=== PATIENT | male | born 1965 | race Caucasian/White ===

== ENCOUNTER 2024-01-20 15:14 | Observation (INO) | payer OTHER ==
[2024-01-20 15:34] LABS: Absolute Eosinophils 0.6 K/uL (0-0.5); Absolute Lymphocytes (CBC) 2.3 K/uL (0.7-4.9); Absolute Monocytes 0.9 K/uL (0.1-1.3); Absolute Neutrophil 6.1 K/uL (1.8-8.0); Basophils % 0.2 % (0-1.3); Eosinophils % 5.8 % (0-4.4); Hematocrit 38.5 % (39.6-49.0); Hemoglobin 12.7 g/dL (13.6-17.9); Lymphocytes % 23.1 % (15.3-44.8); MCH 29.6 pg (27.0-35.0); MCV 89.5 fL (80-100); MPV 9.9 fL (7.6-11.3); Monocytes % 9.1 % (3.3-12.3); Neutrophils % 61.8 % (41.7-73.7); Platelets 246 thou/uL (152-406); Red Cell Distribution Width 13.4 % (12.1-15.2)
[2024-01-20 15:39] LABS: PT Prothrombin Time 12.3 SECONDS (9.5-12.5); Protime INR 1.12
--- NOTE | 2024-01-20 16:10 | RAD REPORT ---
EXAM DESCRIPTION: Evelin Single View01/20/2024 3:35 pm CLINICAL HISTORY: Chest pain COMPARISON: none FINDINGS: Heart is mildly enlarged The lungs appear clear of acute infiltrate Mild prominence of superior mediastinum IMPRESSION: Mild prominence of the superior mediastinum probably confluence of mediastinal fat and v essels. Lymphadenopathy and substernal thyroid could also result in this appearance. PA and lateral c hest series may be helpful for further evaluation
[2024-01-20 16:21] LABS: Albumin 3.1 g/dL (3.4-5.0); Albumin/Globulin Ratio 0.9 (1.1-1.8); Anion Gap 6.8 mEq/L (5.0-15.0); Bilirubin Direct 0.1 mg/dL (0-0.2); Bilirubin Indirect, Calculated 0.5 mg/dL (0.2-0.8); Bilirubin Total 0.6 mg/dL (0.2-1.0); Globulin 3.4 g/dL (2.3-3.5); Magnesium 1.9 mg/dL (1.6-2.4); Potassium 3.8 mEq/L (3.5-5.1); Protein, Total 6.5 g/dL (6.4-8.2); Troponin High Sensitivity 8.8 pg/mL (<58.9)
--- NOTE | 2024-01-20 16:56 | ER ---
Nurse's Notes [facility] Name: Juan Jose Kennedy Age: 58 yrs Sex: Male : 1965 Arrival Date: 01/20/2024 Time: 15:14 Bed 3 Private MD: Diagnosis: Chest pain, unspecified Presentation: 01/19 15:19 Chief complaint: Patient states: he started having chest pain approx 1 hour [employer] SET[employer] while ap3 at work. EMS states they administered NITRO sublingual X's 2, and 324 ASA. 18g IV is established to the left AC. patient reports current pain level to be a 2/10. Coronavirus screen: At this time, the client does not indicate any symptoms associated with coronavirus-19. Ebola Screen: No symptoms or risks identified at this time. Initial Sepsis Screen: Does the patient meet any 2 criteria? No. Patient's initial sepsis screen is negative. Does the patient have a suspected source of infection? No. Patient's initial sepsis screen is negative. Risk Assessment: Do you want to hurt yourself or someone else? Patient reports no desire to harm self or others. Onset of symptoms was January 20, 2024. 15:19 Method Of Arrival: EMS: [facility] ap3 15:19 Acuity: TJ 2 ap3 15:22 Care prior to arrival: Medication(s) given: ASA, 81 mg, x 4, Nitroglycerin, 0.4 mg SL x ap3 2, IV initiated. 18 GA, in the left antecubital area. Triage Assessment: 15:23 General: Appears in no apparent distress. Behavior is calm, cooperative. Pain: ap3 Complains of pain in chest and left arm Pain currently is 2 out of 10 on a pain scale. Neuro: Level of Consciousness is awake, alert, obeys commands, Oriented to person, place, time, situation. Cardiovascular: Reports chest pain. Respiratory: Airway is patent Respiratory effort is even, unlabored, Respiratory pattern is regular, symmetrical. Historical: - Allergies: 15:22 No Known Allergies; ap3 - PMHx: 15:22 None; ap3 - Immunization history:: Client reports receiving the 2nd dose of the Covid vaccine, Flu vaccine is up to date. - Infectious Disease History:: Denies. - Social history:: Smoking status: Patient reports use of chewing tobacco. Screenin:23 Abuse screen: Denies threats or abuse. Nutritional screening: No deficits noted. ap3 Tuberculosis screening: No symptoms or risk factors identified. 15:25 [facility] ED Fall Risk Assessment (Adult) History of falling in the last 3 months, rs5 including since admission No falls in past 3 months (0 pts) Confusion or Disorientation No (0 pts) Intoxicated or Sedated No (0 pts) Impaired Gait No (0 pts) Mobility Assist Device Used No (0 pt) Altered Elimination No (0 pt) Score/Fall Risk Level 0 - 2 = Low Risk Oriented to surroundings, Maintained a safe environment. Abuse screen:. Assessment: 15:20 General: Appears in no apparent distress. uncomfortable, Behavior is calm, cooperative. rs5 Pain: Complains of pain in chest Pain currently is 3 out of 10 on a pain scale. Quality of pain is described as aching, Pain began 1 hour ago. Is continuous. Pain: Neuro: Level of Consciousness is awake, alert, obeys commands, Oriented to person, place, time, situation. Cardiovascular: Patient's skin is warm and dry. Rhythm is regular. Respiratory: Airway is patent Respiratory effort is even, unlabored, Respiratory pattern is regular, symmetrical. GI: Abdomen is round non-distended, Abd is soft and non tender X 4 quads. : No signs and/or symptoms were reported regarding the genitourinary system. EENT: No signs and/or symptoms were reported regarding the EENT system. Derm: Skin is intact, Skin is pink, warm \T\ dry. Musculoskeletal: Range of motion: intact in all extremities. 16:25 Reassessment: Patient and/or family updated on plan of care and expected duration. Pain rs5 level reassessed. Patient is alert, oriented x 3, equal unlabored respirations, skin warm/dry/pink. Patient denies pain at this time. Patient states feeling better. Patient states symptoms have improved. 17:15 Pain: Denies pain. Cardiovascular: Rhythm is regular. Respiratory: Respiratory effort rs5 is even, unlabored, Respiratory pattern is regular, symmetrical. 18:00 Reassessment: No changes from previously documented assessment. rs5 Vital Signs: 15:19 BP 150 / 86; Pulse 70; Resp 19; Temp 98; Pulse Ox 99% ; Weight 123.83 kg; Height 5 ft. ap3 11 in. ; Pain 2/10; 17:16 BP 128 / 78; Pulse 75; Resp 18; Pulse Ox 99% ; rs5 18:22 BP 130 / 81; Pulse 73; Resp 18; Pulse Ox 99% on R/A; rs5 15:19 Body Mass Index 38.08 (123.83 kg, 180.34 cm) ap3 15:19 Pain Scale: Adult ap3 ED Course: 15:19 Patient arrived in ED. ap3 15:21 Fortunato Chamberlain MD is Attending Physician. sp3 15:22 Triage completed. ap3 15:23 O2 via room air. ap3 15:24 Arm band placed on right wrist. ap3 15:24 ekg monitor on. Pulse ox on. NIBP on. ap3 15:25 Inserted saline lock: 20 gauge in left antecubital area, using aseptic technique. rs5 15:25 Patient has correct armband on for positive identification. Placed in gown. Bed in low rs5 position. Call light in reach. Side rails up X2. 15:32 Carlos A Romeo, RN is Primary Nurse. rs5 15:36 XRAY Chest (1 view) In Process Unspecified. EDMS 16:55 Chris Edwards is Hospitalizing Provider. sp3 17:15 No provider procedures requiring assistance completed. rs5 18:25 Patient admitted, IV remains in place. rs5 Administered Medications: No medications were administered Medication: 15:25 VIS not applicable for this client. rs5 Outcome: 16:55 Decision to Hospitalize by Provider. sp3 18:25 Admitted to Med/surg accompanied by tech, with chart, rs5 18:25 Condition: stable 18:25 Discharge instructions given to patient, family, Instructed on the need for admit, Demonstrated understanding of instructions, 18:26 Patient left the ED. rs5 Signatures: Dispatcher [employer] EDSD Alisia Galaviz RN RN ap3 Fortunato Chamberlain MD MD sp3 Carlos A Romeo, MICHEL RN rs5 Corrections: (The following items were deleted from the chart) 17:14 15:24 Pain: Pain radiates to left arm ap3 rs5
--- NOTE | 2024-01-20 16:56 | EDPHYS ---
Physician Documentation [facility] Name: Juan Jose Kennedy Age: 58 yrs Sex: Male : 1965 Arrival Date: 01/20/2024 Time: 15:14 Bed 3 Private MD: ED Physician Fortunato Chamberlain HPI: 01/19 15:26 This 58 yrs old Male presents to ER via EMS with complaints of Chest Pain. sp3 15:26 58-year-old male with no significant past medical history except for some seasonal sp3 allergies now presents to the ED via EMS from [facility] for chest pain that started while he was at work. Patient works outside but states he has been adequately hydrating. Pain came on sudden onset substernal with diaphoresis and mild shortness of breath. Symptoms have somewhat resolved since being transported and arriving here. He denies headache, neck pain, ongoing chest pain or shortness of breath, back pain, abdominal pain, vomiting, diarrhea, syncope, near syncope, rash, significant travel history, known sick contacts, prolonged immobilization, or any other signs or symptoms on ROS at this time.. Historical: - Allergies: 15:22 No Known Allergies; ap3 - PMHx: 15:22 None; ap3 - Immunization history:: Client reports receiving the 2nd dose of the Covid vaccine, Flu vaccine is up to date. - Infectious Disease History:: Denies. - Social history:: Smoking status: Patient reports use of chewing tobacco. ROS: 15:27 Constitutional: Negative for fever, chills, and weight loss, Eyes: Negative for injury, sp3 pain, redness, and discharge, ENT: Negative for injury, pain, and discharge, Neck: Negative for injury, pain, and swelling, Abdomen/GI: Negative for abdominal pain, nausea, vomiting, diarrhea, and constipation, Back: Negative for injury and pain, MS/Extremity: Negative for injury and deformity, Skin: Negative for injury, rash, and discoloration, Neuro: Negative for headache, weakness, numbness, tingling, and seizure, Psych: Negative for depression, anxiety, suicide ideation, homicidal ideation, and hallucinations, Allergy/Immunology: Negative for hives, rash, and allergies, Endocrine: Negative for neck swelling, polydipsia, polyuria, polyphagia, and marked weight changes, 15:27 All other systems are negative, Exam: 15:27 Constitutional: This is a well developed, well nourished patient who is awake, alert, sp3 and in no acute distress. Head/Face: Normocephalic, atraumatic. Eyes: Pupils equal round and reactive to light, extra-ocular motions intact. Lids and lashes normal. Conjunctiva and sclera are non-icteric and not injected. Cornea within normal limits. Periorbital areas with no swelling, redness, or edema. Neck: Trachea midline, no thyromegaly or masses palpated, and no cervical lymphadenopathy. Supple, full range of motion without nuchal rigidity, or vertebral point tenderness. No Meningismus. Chest/axilla: Normal chest wall appearance and motion. Nontender with no deformity. No lesions are appreciated. Cardiovascular: Regular rate and rhythm with a normal S1 and S2. No gallops, murmurs, or rubs. Normal PMI, no JVD. No pulse deficits. Respiratory: Lungs have equal breath sounds bilaterally, clear to auscultation and percussion. No rales, rhonchi or wheezes noted. No increased work of breathing, no retractions or nasal flaring. Abdomen/GI: Soft, non-tender, with normal bowel sounds. No distension or tympany. No guarding or rebound. No evidence of tenderness throughout. Back: No spinal tenderness. No costovertebral tenderness. Full range of motion. Skin: Warm, dry with normal turgor. Normal color with no rashes, no lesions, and no evidence of cellulitis. MS/ Extremity: Pulses equal, no cyanosis. Neurovascular intact. Full, normal range of motion. Neuro: Awake and alert, GCS 15, oriented to person, place, time, and situation. Cranial nerves II-XII grossly intact. Motor strength 5/5 in all extremities. Sensory grossly intact. Cerebellar exam normal. Normal gait. Psych: Awake, alert, with orientation to person, place and time. Behavior, mood, and affect are within normal limits. Vital Signs: 15:19 BP 150 / 86; Pulse 70; Resp 19; Temp 98; Pulse Ox 99% ; Weight 123.83 kg; Height 5 ft. ap3 11 in. ; Pain 2/10; 17:16 BP 128 / 78; Pulse 75; Resp 18; Pulse Ox 99% ; rs5 18:22 BP 130 / 81; Pulse 73; Resp 18; Pulse Ox 99% on R/A; rs5 15:19 Body Mass Index 38.08 (123.83 kg, 180.34 cm) ap3 15:19 Pain Scale: Adult ap3 MDM: 15:22 Patient medically screened. sp3 15:28 Data reviewed: vital signs, nurses notes, lab test result(s), EKG, radiologic studies. sp3 ED course: 58-year-old male with chest pain and related ACS symptoms by EMS. Differential diagnosis includes acute coronary syndrome spectrum, electrolyte abnormality, vasovagal syncope, among others. Clinically I have ruled out pulmonary embolism and TAD. Will likely place this patient in 23-hour observation given midrange heart score and symptom history.. 16:26 ED course: Workup negative with BNP in 223 very mildly elevated. No ongoing chest pain sp3 currently. Troponin is also negative. Will place in 23-hour observation for serial cardiac markers and cardiology consultation with probable discharge tomorrow.. 01/19 15:21 Order name: Basic Metabolic Panel; Complete Time: 16:25 sp3 01/19 15:21 Order name: CBC with Diff; Complete Time: 16:10 sp3 01/19 15:21 Order name: LFT's; Complete Time: 16:25 sp3 01/19 15:21 Order name: Magnesium; Complete Time: 16:25 sp3 01/19 15:21 Order name: NT PRO-BNP; Complete Time: 16:25 sp3 01/19 15:21 Order name: PT-INR; Complete Time: 16:10 sp3 01/19 15:21 Order name: Troponin HS; Complete Time: 16:25 sp3 01/19 17:24 Order name: T4 Free EDMS 01/19 17:24 Order name: Thyroid Stimulating Hormone EDMS 01/19 17:24 Order name: Basic Metabolic Panel EDMS 01/19 17:24 Order name: Basic Metabolic Panel EDMS 01/19 17:24 Order name: CBC with Automated Diff EDMS 01/19 17:25 Order name: CBC with Automated Diff EDMS 01/19 17:25 Order name: Lipid Profile EDMS 01/19 17:25 Order name: Lipid Profile EDMS 01/19 17:25 Order name: Magnesium EDMS 01/19 17:25 Order name: Magnesium EDMS 01/19 17:25 Order name: Phosphorus EDMS 01/19 17:25 Order name: Phosphorus EDMS 01/19 17:25 Order name: Troponin High Sensitivity EDMS 01/19 17:25 Order name: Troponin High Sensitivity EDMS 01/19 17:25 Order name: Troponin High Sensitivity EDMS 01/19 15:21 Order name: XRAY Chest (1 view); Complete Time: 16:18 sp3 01/19 15:21 Order name: Cardiac monitoring; Complete Time: 15:38 sp3 01/19 15:21 Order name: EKG - Nurse/Tech; Complete Time: 15:41 sp3 01/19 15:21 Order name: IV Saline Lock; Complete Time: 15:41 sp3 01/19 15:21 Order name: Labs collected and sent; Complete Time: 15:41 sp3 01/19 15:21 Order name: O2 Per Protocol; Complete Time: 15:41 sp3 01/19 15:21 Order name: O2 Sat Monitoring; Complete Time: 15:41 sp3 Administered Medications: No medications were administered Disposition Summary: 01/20/24 16:55 Hospitalization Ordered Notes: Hospitalization Status: Observation sp3 Provider: Chris Edwards sp3 Location: Telemetry/MedSurg (observation) sp3 Condition: Stable sp3 Problem: new sp3 Symptoms: have worsened sp3 Bed/Room Type: Standard 3 Room Assignment: 405(01/20/24 17:37) eb Diagnosis - Chest pain, unspecified sp3 Forms: - Medication Reconciliation Form sp3 - SBAR form sp3 - Leadership Thank You Letter sp3 Signatures: Dispatcher [employer] Alisia Reyna RN RN ap3 Loraine Leong Setul, MD MD sp3 Carlos A Romeo RN RN rs5 Corrections: (The following items were deleted from the chart) 15:22 15:22 BASIC METABOLIC PANEL+C.LAB.BRZ ordered. EDMS EDMS 15:22 15:22 CBC+H.LAB.BRZ ordered. EDMS EDMS 15:22 15:22 HEPATIC FUNCTION+C.LAB.BRZ ordered. EDMS EDMS 15:22 15:22 MAGNESIUM+C.LAB.BRZ ordered. EDMS EDMS 15:22 15:22 PROBNP+C.LAB.BRZ ordered. EDMS EDMS 15:22 15:22 PROTIME (+INR)+COAG.LAB.BRZ ordered. EDMS EDMS 15:22 Troponin High Sensitivity+C.LAB.BRZ ordered. EDMS EDMS 15:22 Chest Single View+RAD.RAD.BRZ ordered. EDMS EDMS 17:37 16:55 sp3 eb
--- NOTE | 2024-01-20 17:02 | P.HP ---
Certification for Inpatient Patient admitted to: Observation With expected LOS: <2 Midnights Patient will require the following post-hospital care: None Practitioner: I am a practitioner with admitting privileges, knowledge of patient current condition, hospital course, and medical plan of care. Services: Services provided to patient in accordance with Admission requirements found in Title 42 Section 412.3 of the Code of Federal Regulations Patient History Date of Service: 01/20/24 Reason for admission: Chest Pain r/o History of Present Illness: Juan Jose Kennedy is a 58 year old male with Pmhx CVA x3 (not taking medication) who presents to the ED with chief complaint of sharp stabbing left chest pain that radiates to his left arm and neck that started at 1430 at work today. He reports that he sweats everyday at work and cannot identify if he was sweating d/t this new onset chest pain. On examination, the left chest pain is reproducible stating it feeling like a bruise. Lung sounds clear on RA, alert and oriented, BP mildly elevated. Initial vitals:BP 150 / 86; Pulse 70; Resp 19; Temp 98; Pulse Ox 99% Laboratory evaluation H&H 12.7/38.5, GFR 51, BNP 273, Troponin 8.8. Chest xray reports "Heart is mildly enlarged. The lungs appear clear of acute infiltrate. Mild prominence of superior mediastinum. IMPRESSION: Mild prominence of the superior mediastinum probably confluence of mediastinal fat and vessels. Lymphadenopathy and substernal thyroid could also result in this appearance. PA and lateral chest series may be helpful for further evaluation." Juan oJse will be admitted to hospital service for further evaluation and treatment of chest pain rule out ACS. Dr. Corral consulted. - Past Medical/Surgical History -: CVA x3 -: seasonal allergies Past Surgical History: Reviewed- Non-Contributory - Family History Family History: Reviewed- Non-Contributory - Social History Smoking Status: Never smoker Alcohol use: No CD- Drugs: No Review of Systems Cardiovascular: Chest Pain, Other (left sided, radiates to left arm and neck) Physical Examination - Physical Exam General: Alert, In no apparent distress, Oriented x3 HEENT: Atraumatic, Normocephalic, PERRLA Neck: Supple, 2+ carotid pulse no bruit Respiratory: Clear to auscultation bilaterally, Normal air movement Cardiovascular: No edema, Normal pulses, Regular rate/rhythm, Normal S1 S2 Capillary refill: <2 Seconds Gastrointestinal: Normal bowel sounds, Distended (obese) - Studies Laboratory Data (last 24 hrs) 01/20/24 01/20/24 01/20/24 15:23 15:22 15:22 WBC 9.80 Hgb 12.7 L Hct 38.5 L Plt Count 246 PT 12.3 INR 1.12 Sodium 140 Potassium 3.8 BUN 16 Creatinine 1.55 H Glucose 97 Magnesium 1.9 Total Bilirubin 0.6 AST 15 ALT 25 Alkaline Phosphatase 72 Assessment and Plan - Plan Assessment and plan Chest pain rule out ACS -Troponin 8.8, serial pending -BNP 273 -Chest x-ray reports "Heart is mildly enlarged. The lungs appear clear of acute infiltrate. Mild prominence of superior mediastinum. IMPRESSION: Mild prominence of the superior mediastinum probably confluence of mediastinal fat and vessels. Lymphadenopathy and substernal thyroid could also result in this appearance. PA and lateral chest series may be helpful for further evaluation." -EKG reports sinus rhythm with occasional PVCs. HR 88. -Continuous telemetry -Cardiology consulted- recommendations appreciated -Echo ordered -Aspirin and statin daily -Nitroglycerin and morphine as needed History of CVA -No home medication regimen at this time DVT PPx Lovenox Full code LOS 23 hours Discharge Plan: Home Plan to discharge in: 24 Hours - Advance Directives Does patient have a Living Will: No Does patient have a Durable POA for Healthcare: No
[2024-01-20] MEDS ORDERED: ACETAMINOPHEN 500 MG TAB PO PRN (17:17)
[2024-01-20] MEDS ORDERED: MORPHINE 2 MG/ML SYR IV PRN (17:17)
[2024-01-20] MEDS ORDERED: NITROGLYCERIN 0.4 MG/TAB SL PRN (17:17)
[2024-01-20 18:44] LABS: Thyroid Stimulating Hormone 2.03 uIU/mL (0.358-3.740)
[2024-01-20] MEDS: ATORVASTATIN 40 MG TAB PO SCH (22:05)
[2024-01-21 03:34] LABS: Absolute Eosinophils 0.8 K/uL (0-0.5); Absolute Lymphocytes (CBC) 2.2 K/uL (0.7-4.9); Absolute Monocytes 0.7 K/uL (0.1-1.3); Absolute Neutrophil 4.1 K/uL (1.8-8.0); Basophils % 0.4 % (0-1.3); Eosinophils % 10.1 % (0-4.4); Lymphocytes % 27.6 % (15.3-44.8); MCH 30.5 pg (27.0-35.0); MCHC 34.1 g/dL (32.0-36.0); MCV 89.5 fL (80-100); Monocytes % 9.4 % (3.3-12.3); Neutrophils % 52.5 % (41.7-73.7); Nucleated Red Blood Cells % 0.1 % (0-0); Platelets 236 thou/uL (152-406); RBC Red Blood Cell Count 4.25 M/uL (4.33-5.43); Red Cell Distribution Width 13.1 % (12.1-15.2)
[2024-01-21 03:49] LABS: Anion Gap 6.9 mEq/L (5.0-15.0); Magnesium 2.2 mg/dL (1.6-2.4); Phosphorus 3.7 mg/dL (2.5-4.9); Potassium 3.9 mEq/L (3.5-5.1)
[2024-01-21 04:18] VITALS: O2SAT 97; BMI 37.6
[2024-01-21] MEDS: POTASSIUM CL SA 10 MEQ TAB PO ONE (08:20)
--- NOTE | 2024-01-21 14:38 | P.PN ---
Date of Service: 01/21/24 Subjective Awake without chest pain this morning Ambulating independently, tolerating p.o. diet No new complaint ROS 10 point ROS as noted above, otherwise negative Physical Exam General: AAOx3, NAD HEENT: Atraumatic, Normocephalic, PERRLA Neck: Supple, 2+ carotid pulse no bruit Respiratory: Clear to auscultation bilaterally, symmetrical chest wall movement normal air movement Cardiovascular: Regular rate/rhythm, Normal S1 S2, no murmur noted Capillary refill: <2 Seconds Gastrointestinal: Normal bowel sounds, Distended (obese) Musculoskeletal: 2+ peripheral pulses Neurological: clear appropriate speech, normal tone Psych: normal mood and affect, Judgement appropriate Vitals Reviewed Problem list Chest pain rule out ACS History of CVA Assessment and Plan Chest pain rule out ACS -Troponin 8.8/10.7/8.6 -BNP 273 -Chest x-ray reports "Heart is mildly enlarged. The lungs appear clear of acute infiltrate. Mild prominence of superior mediastinum. IMPRESSION: Mild prominence of the superior mediastinum probably confluence of mediastinal fat and vessels. Lymphadenopathy and substernal thyroid could also result in this appearance. PA and lateral chest series may be helpful for further evaluation." -EKG reports sinus rhythm with occasional PVCs. HR 88. -Continuous telemetry -Cardiology consulted- recommendations appreciated -Echo ordered -Aspirin and statin daily -Nitroglycerin and morphine as needed -Lipid panel unremarkable, TSH/T4 unremarkable History of CVA -No home medication regimen at this time DVT PPx Lovenox Full code LOS 23 hours
--- NOTE | 2024-01-21 16:09 | P.DS ---
Admission Date: 01/20/24 Discharge Date: 01/21/24 Disposition: ROUTINE DISCHARGE Discharge Condition: GOOD Reason for Admission: Chest Pain r/o Brief History of Present Illness: Diagnosis Chest pain rule out ACS History of CVA HPI 01/20/24 Juan Jose Kennedy is a 58 year old male with Pmhx CVA x3 (not taking medication) who presents to the ED with chief complaint of sharp stabbing left chest pain that radiates to his left arm and neck that started at 1430 at work today. He reports that he sweats everyday at work and cannot identify if he was sweating d/t this new onset chest pain. On examination, the left chest pain is reproducible stating it feeling like a bruise. Lung sounds clear on RA, alert and oriented, BP mildly elevated. Initial vitals:BP 150 / 86; Pulse 70; Resp 19; Temp 98; Pulse Ox 99% Laboratory evaluation H&H 12.7/38.5, GFR 51, BNP 273, Troponin 8.8. Chest xray reports "Heart is mildly enlarged. The lungs appear clear of acute infiltrate. Mild prominence of superior mediastinum. IMPRESSION: Mild prominence of the superior mediastinum probably confluence of mediastinal fat and vessels. Lymphadenopathy and substernal thyroid could also result in this appearance. PA and lateral chest series may be helpful for further evaluation." Juan Jose will be admitted to hospital service for further evaluation and treatment of chest pain rule out ACS. Dr. Corral consulted. Hospital Course: Dieudonne Kennedy is a pleasant 58 year old male with a past medical history significant for CVA x3 who was admitted to the [facility] on 01/20/24 for Chest pain rule out. Juan Jose Kennedy presented to the ED with chief complaint of Chest pain radiating to the left arm and neck. Troponins trended flat and EKG was negative. Dr. Corral recommended further evaluation in his office next week (January 22-January 26). Please follow up with cardiology very soon for continued management. Please pick up attendant atorvastatin and aspirin at your pharmacy and continue to take these medications until further directed by cardiology. He is tolerating p.o. diet, ambulating independently, chest pain is relieved, and hemodynamically stable for discharge On 01/21/24, Juan Jose was seen on morning rounds and deemed medically stable for discharge. Juan Jose was discharged with instructions to schedule follow-up appointments with PCP and Dr. Corral. Juan Jose was provided prescriptions for atorvastatin and aspirin. The patient was given the opportunity to ask questions and reported no further questions. Furthermore, all questions were answered to the best of my ability. Physical Exam General: No acute distress, AAOx3 HEENT: Atraumatic, Normocephalic, PERRLA Neck: Supple, 2+ carotid pulse no bruit Respiratory: Clear to auscultation bilaterally, symmetrical chest wall movement normal air movement Cardiovascular: RRR, Normal S1 S2, no murmur noted Capillary refill: <2 Seconds Gastrointestinal: Normal bowel sounds, Distended (obese) Musculoskeletal: 2+ peripheral pulses Neurological: clear appropriate speech, normal tone Psych: normal mood and affect, Judgement appropriate Vital Signs/Physical Exam: Temp Pulse Resp BP Pulse Ox 97.7 F 69 16 137/83 97 01/21/24 12:00 01/21/24 12:00 01/21/24 12:00 01/21/24 12:00 01/21/24 12:00 Laboratory Data at Discharge: WBC 7.80 thou/uL (4.3-10.9) 01/21/24 02:57 Hgb 13.0 g/dL (13.6-17.9) L 01/21/24 02:57 Hct 38.0 % (39.6-49.0) L 01/21/24 02:57 Plt Count 236 thou/uL (152-406) 01/21/24 02:57 PT 12.3 SECONDS (9.5-12.5) 01/20/24 15:23 INR 1.12 01/20/24 15:23 Sodium 140 mEq/L (136-145) 01/21/24 02:57 Potassium 3.9 mEq/L (3.5-5.1) 01/21/24 02:57 BUN 16 mg/dL (7-18) 01/21/24 02:57 Creatinine 1.29 mg/dL (0.70-1.30) 01/21/24 02:57 Glucose 110 mg/dL (74-106) H 01/21/24 02:57 Phosphorus 3.7 mg/dL (2.5-4.9) 01/21/24 02:57 Magnesium 2.2 mg/dL (1.6-2.4) 01/21/24 02:57 Total Bilirubin 0.6 mg/dL (0.2-1.0) 01/20/24 15:22 AST 15 U/L (15-37) 01/20/24 15:22 ALT 25 U/L (16-61) 01/20/24 15:22 Alkaline Phosphatase 72 U/L (45-117) 01/20/24 15:22 Triglycerides 117 mg/dL (<150) 01/21/24 02:57 Cholesterol 172 mg/dL (<200) 01/21/24 02:57 HDL Cholesterol 36 mg/dL (40-60) L 01/21/24 02:57 Cholesterol/HDL Ratio 4.78 01/21/24 02:57 Home Medications: Aspirin [Adult Low Dose Aspirin EC] 81 mg PO DAILY 30 Days #30 tab 01/21/24 Atorvastatin Calcium 40 mg PO DAILY 30 Days #30 tab 01/21/24 Omeprazole [Prilosec] 40 mg PO DAILY 01/21/24 New Medications: Aspirin [Adult Low Dose Aspirin EC] 81 mg PO DAILY 30 Days #30 tab Atorvastatin Calcium 40 mg PO DAILY 30 Days #30 tab Physician Discharge Instructions: Juan Jose Kennedy presented to the ED with chief complaint of Chest pain radiating to the left arm and neck. Troponins trended flat and EKG was negative. Dr. Corral recommended further evaluation in his office next week (January 22-January 26). Please follow up with cardiology very soon for continued management. Please pick up attendant atorvastatin and aspirin at your pharmacy and continue to take these until further directed by cardiology. 1. Please call and schedule a follow-up appointment with your PCP in 3-5 days - Please follow-up with your PCP for medication refills/adjustments 2. Please call and schedule a follow-up appointment with Dr. Corral next week 3. Continue heart healthy diet 4. no activity restrictions 5. Return to the ED if symptoms worsen New medications Atorvastatin 40 mg p.o. daily Aspirin 81 mg p.o. daily Diet: AHA Activity: Ad adi Followup: Braxton Corral MD [ACTIVE - CAN ADMIT] - [facility] [Primary Care Provider] -
[2024-01-21 16:53] VITALS: BP 172/74; TEMP 97.8
== END 2024-01-21 16:38 | disposition home or self-care (01) ==
LOC: ER 15:14 → ERHOLD 17:17 → 4TH 17:40
PROVIDERS: ADMIT Internal Medicine; ATTEND Internal Medicine
DX: R07.9 Chest pain, unspecified (principal); F17.220 Nicotine dependence, chewing tobacco, uncomplicated; Z86.73 Personal history of transient ischemic attack (TIA), and cerebral infarction without residual deficits; Z79.82 Long term (current) use of aspirin
CPT/HCPCS: 36415; 71045; 80048; 80061; 80076; 83735; 83880; 84100; 84439; 84443; 84484; 85025; 85610; 93005; 99285; G0378